=== PATIENT | female | born 1970 | race African-American/Black ===

== ENCOUNTER 2017-04-01 05:13 | Inpatient (IN) | payer OTHER ==
[~2017-04-01] VITALS: Ht 154.9 cm; Wt 72.1 kg
[2017-04-01 05:29] VITALS: BP 121/78
--- NOTE | 2017-04-01 05:49 | Emergency Room Report ---
History of Present Illness General Chief Complaint: Vomiting Source: Patient Present Illness HPI 46-year-old female history of fibroids, status post uterine artery embolization yesterday, presenting with chills and vomiting. Patient states that starting 7: 30 PM last night she has had more than 20 episodes of nonbilious nonbloody vomiting. Patient also complains of generalized abdominal pain. Patient states that she has been spotting vaginal bleeding since the surgery, has soaked 2 pads, small clots. Also complains of chills, no known fevers. Allergies: Coded Allergies: SULFA (SULFONAMIDE ANTIBIOTICS) (Verified Allergy, Unknown, 04/01/17) Patient History Past Medical History: see triage record Past Surgical History: none Pertinent Family History: none Last Menstrual Period: 1 week ago Reviewed Nursing Documentation: PMH: Agreed, PSxH: Agreed Nursing Documentation-PMH Hx Gastrointestinal Problems: Yes - HX OF PEPTIC ULCER Review of Systems All Other Systems: negative except mentioned in HPI Physical Exam Vital Signs Date Time Temp Pulse Resp B/P (MAP) Pulse Ox O2 Delivery O2 Flow Rate FiO2 04/01/17 05:20 98.1 84 18 121/78 100 Room Air Sp02 EP Interpretation: reviewed, normal General Appearance: alert, GCS 15, non-toxic, moderate distress Head: normocephalic, atraumatic Eyes: bilateral eye normal inspection, bilateral eye PERRL, bilateral eye EOMI ENT: normal ENT inspection, normal pharynx, normal voice, moist mucus membranes Neck: normal inspection, full range of motion, supple Respiratory: normal inspection, lungs clear, normal breath sounds, no respiratory distress, no retraction, no wheezing, speaking full sentences, chest symmetrical Cardiovascular #1: normal inspection, regular rate, rhythm, no edema, normal capillary refill Cardiovascular #2: 2+ radial (R), 2+ radial (L) Gastrointestinal: non-distended, no guarding, other - Generalized diffuse abdominal tenderness, no guarding or rebound Musculoskeletal: normal inspection, back normal, normal range of motion, non- tender Neurologic: normal inspection, alert, oriented x3, responsive, motor strength/ tone normal, sensory intact, normal gait, speech normal Psychiatric: normal inspection, judgement/insight normal, memory normal Skin: normal inspection, normal color, no rash, warm/dry, well hydrated, normal turgor Medical Decision Making ER Course 46-year-old female with abdominal pain and vomiting, recent uterine artery embolization yesterday DDX: Postop complication, intra-abdominal abscess, intra-abdominal bleeding, endometritis, UTI, pyelo-, ACS Plan: Obtain labs, ua, lactic acid, blood cultures, CT abdo pelvis with IV contrast Zofran, IV fluids, antibiotics Pain control Patient signed out to Dr. Shelton 46-year-old female with recent uterine artery embolization Now with abdominal pain and vomiting Pending labs Pending CAT scan Please touch base with [employer] Dr. Rowley after CT results Please note that this Emergency Department Report was dictated using [employer] phys technology software, occasionally this can lead to erroneous entry secondary to interpretation by the dictation equipment. EKG Diagnostic Results Rate: normal ST Segments: other - twi V3, t wave flattening V2 ASA given to the pt in ED: No Rhythm Strip Diag. Results EP Interpretation: yes Rate: 95 Rhythm: NSR, no PVC's, no ectopy Last Vital Signs Date Time Temp Pulse Resp B/P (MAP) Pulse Ox O2 Delivery O2 Flow Rate FiO2 04/01/17 05:20 98.1 84 18 121/78 100 Room Air Connie Bustillo M.D. Apr 01, 2017 05:49
[2017-04-01] MEDS ORDERED: Morphine Sulfate 4mg/ml Inj IVP ONE (06:00)
[2017-04-01 06:04] LABS: BASOPHILS % (AUTO) 0.8 % (0.0-2.0); LYMPHOCYTES % (AUTO) 9.8 % (20.0-45.0); MEAN CORPUSCULAR HEMOGLOBIN 24.7 PG (27.0-31.0); MEAN CORPUSCULAR HGB CONC 31.1 G/DL (32.0-36.0); MEAN CORPUSCULAR VOLUME 79 FL (80-99); MEAN PLATELET VOLUME 5.6 FL (6.5-10.1); NEUTROPHILS % (AUTO) 79.5 % (45.0-75.0); PLATELET COUNT 482 K/UL (150-450); RED CELL DISTRIBUTION WIDTH 14.4 % (11.6-14.8); WHITE BLOOD COUNT 11.2 K/UL (4.8-10.8)
[2017-04-01 06:17] LABS: ALANINE AMINOTRANSFERASE 9 U/L (3-33); ALBUMIN/GLOBULIN RATIO 1.2 (1.0-2.7); ANION GAP 16 (5-15); ASPARTATE AMINO TRANSFERASE 14 U/L (5-40); CALCIUM 9.9 mg/dL (8.6-10.2); CARBON DIOXIDE 29 mEQ/L (20-30); CHLORIDE 96 mEQ/L (98-107); CREATININE 0.6 mg/dL (0.5-0.9); GLOMERULAR FILTRATION RATE > 60 mL/min (>60); HEMOLYSIS 1; LIPASE 19 U/L (< 60); POTASSIUM 3.7 mEQ/L (3.4-4.9); SODIUM 141 mEQ/L (135-145); TOTAL PROTEIN 8.2 g/dL (6.6-8.7)
[2017-04-01] MEDS ORDERED: cefTRIAXone 1 GM in NS 55 ML IVPB ONE (06:30)
[2017-04-01] MEDS ORDERED: HYDROmorphone 1mg/ml Carpuject IVP ONE ×2 (06:45→09:15)
[2017-04-01 06:57] LABS: APPEARANCE,URINE CLEAR; KETONES,URINE 3+ (NEGATIVE); LEUKOCYTE ESTERASE ,URINE NEGATIVE (NEGATIVE); NITRITE,URINE NEGATIVE (NEGATIVE); PH,URINE 8 (4.5-8.0); PROTEIN,URINE NEGATIVE (NEGATIVE); UROBILINOGEN,URINE NORMAL MG/DL (0.0-1.0)
[2017-04-01 07:08] LABS: BACTERIA,URINE FEW /HPF; SQUAMOUS EPITHELIAL CELL,UR FEW /LPF (NONE/OCC); WBC,URINE 0-2 /HPF (0 - 2)
[2017-04-01] MEDS ORDERED: OMEPRAZOLE20 M3 ORAL (07:10)
[2017-04-01] MEDS ORDERED: NORCO 10-325 T1 EACH ORAL (07:11)
[2017-04-01 07:33] VITALS: BP 118/74
--- NOTE | 2017-04-01 09:10 | Diagnostic Imaging Report ---
Indication: Right lower quadrant pain Technique: CT of the abdomen and pelvis utilizing automated exposure control with intravenous contrast. Venous scanning performed. CT dose: Total DLP 659 mGycm; CTDI vol 14.4 mGy Comparison: None Findings: There is minimal atelectasis in the lung bases. There is a 10 mm hypodensity within the left lobe of the liver probably a cyst. The adrenal glands, spleen and pancreas are unremarkable. There is high density within the gallbladder. Small bilateral renal hypodensities are seen measuring up to 6 mm too small to accurately characterize probably cysts. The small bowel loops are normal in caliber. There is no definitive evidence of appendicitis. There is a small area of ill-defined fluid density measuring approximately 3.5 x 1.5 cm abutting the right external iliac vessels. There is a large multilobulated central pelvic mass measuring approximately 12.5 x 9 x 11.5 cm with hyper and hypodense individual masses measuring up to 4.6 cm. There is a small fat-containing umbilical hernia. High density is noted in the gallbladder. The osseous structures demonstrate no acute abnormality. Impression: Approximately 3.5 x 1.5 cm area of ill-defined probable hemorrhage surrounding the right external iliac vessels. No obvious active extravasation. Clinical correlation recommended. Multi-lobulated central pelvic mass/masses with the conglomerate measuring 12.5 x 9 x 11.5 cm comprised of smaller hyper and hypodense individual masses measuring up to 4.6 cm probably arising from the uterus and suggestive of uterine masses such as fibroids. Further evaluation recommended as indicated. Increased density within the gallbladder could represent vicarious excretion of contrast from a recent procedure. Sludge or small stones are difficult to exclude. Small left hepatic cyst. Small hypodensities within the kidneys probably representing cysts. Other findings as above. The CT scanner at [facility] is accredited by the [employer] and the scans are performed using protocols designed to limit radiation exposure to as low as reasonably achievable to attain images of sufficient resolution adequate for diagnostic evaluation.
[2017-04-01 09:34] VITALS: BP 121/69
[2017-04-01] MEDS ORDERED: Hydromorphone 0.5mg/0.5ml inj IVP PRN (10:45)
[2017-04-01] MEDS ORDERED: Norco 5mg/325mg tab ORAL PRN (10:45)
[2017-04-01] MEDS ORDERED: DiphenhydrAMINE 50mg/ml Inj IVP PRN (10:45)
--- NOTE | 2017-04-01 10:50 | General Surgery Progress Note ---
General Surgery-Progress Note Subjective Day of Surgery: march 31 Procedure Performed ovarian artery embolization Symptoms: pain same Objective Last 24 Hour Vital Signs Date Time Temp Pulse Resp B/P (MAP) Pulse Ox O2 Delivery O2 Flow Rate FiO2 04/01/17 09:34 98.4 75 19 121/69 96 Room Air 04/01/17 08:24 98.0 71 18 118/74 95 Room Air 04/01/17 07:33 98.0 71 18 118/74 95 Room Air 04/01/17 05:29 98.1 84 18 121/78 100 Room Air 04/01/17 05:20 98.1 84 18 121/78 100 Room Air I&O Intake and Output 04/01/17 04/02/17 19:00 07:00 Intake Total 0 ml Balance 0 ml Intake Oral 0 ml # Voids 3 Dressing: dry Wound: clean Drains: none Cardiovascular: RSR Respiratory: clear Abdomen: soft, flat, tenderness, absent bowel sounds Extremities: no edema, no tenderness, no cyanosis, pulses Laboratory Tests Test 04/01/17 05:55 04/01/17 05:58 Urine Color Pale yellow Urine Appearance Clear Urine pH 8 (4.5-8.0) Urine Specific [place] 1.010 (1.005-1.035) Urine Protein Negative (NEGATIVE) Urine Glucose (UA) Negative (NEGATIVE) Urine Ketones 3+ (NEGATIVE) H Urine Occult Blood 3+ (NEGATIVE) H Urine Nitrite Negative (NEGATIVE) Urine Bilirubin Negative (NEGATIVE) Urine Urobilinogen Normal MG/DL (0.0-1.0) Urine Leukocyte Esterase Negative (NEGATIVE) Urine RBC 2-4 /HPF (0 - 2) H Urine WBC 0-2 /HPF (0 - 2) Urine Squamous Epithelial Cells Few /LPF (NONE/OCC) Urine Bacteria Few /HPF (NONE) Urine HCG, Qualitative Negative Lactic Acid Level 1.20 mmol/L (0.66-2.22) White Blood Count 11.2 K/UL (4.8-10.8) H Red Blood Count 4.20 M/UL (4.20-5.40) Hemoglobin 10.4 G/DL (12.0-16.0) L Hematocrit 33.3 % (37.0-47.0) L Mean Corpuscular Volume 79 FL (80-99) L Mean Corpuscular Hemoglobin 24.7 PG (27.0-31.0) L Mean Corpuscular Hemoglobin Concent 31.1 G/DL (32.0-36.0) L Red Cell Distribution Width 14.4 % (11.6-14.8) Platelet Count 482 K/UL (150-450) H Mean Platelet Volume 5.6 FL (6.5-10.1) L Neutrophils (%) (Auto) 79.5 % (45.0-75.0) H Lymphocytes (%) (Auto) 9.8 % (20.0-45.0) L Monocytes (%) (Auto) 10.0 % (1.0-10.0) Eosinophils (%) (Auto) 0.0 % (0.0-3.0) Basophils (%) (Auto) 0.8 % (0.0-2.0) Sodium Level 141 mEQ/L (135-145) Potassium Level 3.7 mEQ/L (3.4-4.9) Chloride Level 96 mEQ/L (98-107) L Carbon Dioxide Level 29 mEQ/L (20-30) Anion Gap 16 (5-15) H Blood Urea Nitrogen 7 mg/dL (7-23) Creatinine 0.6 mg/dL (0.5-0.9) Estimat Glomerular Filtration Rate > 60 mL/min (>60) Glucose Level 103 mg/dL (74-106) Calcium Level 9.9 mg/dL (8.6-10.2) Total Bilirubin 0.4 mg/dL (0.0-1.2) Aspartate Amino Transf (AST/SGOT) 14 U/L (5-40) Alanine Aminotransferase (ALT/SGPT) 9 U/L (3-33) Alkaline Phosphatase 71 U/L (35-104) Troponin I 0.000 ng/mL (0.000-0.056) Total Protein 8.2 g/dL (6.6-8.7) Albumin 4.5 g/dL (3.5-5.2) Globulin 3.7 g/dL Albumin/Globulin Ratio 1.2 (1.0-2.7) Lipase 19 U/L (< 60) Imaging CT scan, abdomen and pelvis, no acute findings, normal bowel, no abscess, no pseudo-aneurysm. Assessment Post-op Diagnosis post op pain, nausea, uncontrolled Plan Additional Comments GI consult, pain management. clear liquids only. Tray Mariscal MD Apr 01, 2017 10:50
[2017-04-01] MEDS: HYDROmorphone 1mg/ml Carpuject IVP PRN ×2 (11:10→18:30)
[2017-04-01] MEDS: D5 1/2NS w/KCl 20mEq 1,000 ML IV SCH ×2 (14:08→20:13)
[2017-04-01] MEDS: ceFAZolin sod 1 GM in D5W 55 ML IV SCH ×2 (14:08→21:04)
[2017-04-01] MEDS: Norco 10mg/325mg tab ORAL PRN (14:46)
[2017-04-01 16:00] VITALS: BP 91/62
[2017-04-01] MEDS: Docusate 100mg cap ORAL SCH (17:32)
[2017-04-01 20:07] VITALS: BP 106/67
[2017-04-01] MEDS: Zolpidem 5mg tab ORAL PRN (20:57)
[2017-04-02] MEDS: HYDROmorphone 1mg/ml Carpuject IVP PRN (00:28)
[2017-04-02 00:43] VITALS: BP 110/62
[2017-04-02] MEDS: D5 1/2NS w/KCl 20mEq 1,000 ML IV SCH ×3 (03:36→20:24)
[2017-04-02 04:24] VITALS: BP 100/63
[2017-04-02 07:58] LABS: BASOPHILS % (AUTO) 0.7 % (0.0-2.0); EOSINOPHILS % (AUTO) 0.2 % (0.0-3.0); LYMPHOCYTES % (AUTO) 18.4 % (20.0-45.0); MEAN CORPUSCULAR HEMOGLOBIN 25.7 PG (27.0-31.0); MEAN CORPUSCULAR HGB CONC 31.8 G/DL (32.0-36.0); MEAN CORPUSCULAR VOLUME 81 FL (80-99); MEAN PLATELET VOLUME 5.6 FL (6.5-10.1); MONOCYTES % (AUTO) 9.6 % (1.0-10.0); NEUTROPHILS % (AUTO) 71.1 % (45.0-75.0); PLATELET COUNT 367 K/UL (150-450); RED BLOOD COUNT 3.35 M/UL (4.20-5.40); RED CELL DISTRIBUTION WIDTH 15.6 % (11.6-14.8); WHITE BLOOD COUNT 9.4 K/UL (4.8-10.8)
[2017-04-02 08:00] VITALS: BP 101/67
[2017-04-02 08:06] LABS: ANION GAP 13 (5-15); CALCIUM 8.6 mg/dL (8.6-10.2); CARBON DIOXIDE 29 mEQ/L (20-30); CHLORIDE 100 mEQ/L (98-107); CREATININE 0.6 mg/dL (0.5-0.9); GLOMERULAR FILTRATION RATE > 60 mL/min (>60); HEMOLYSIS 0; POTASSIUM 3.6 mEQ/L (3.4-4.9); SODIUM 142 mEQ/L (135-145)
[2017-04-02 08:25] LABS: HEMOLYSIS 0; IRON 30 ug/dL (37-145); TOTAL IRON BINDING CAPACITY 279 ug/dL (250-400)
[2017-04-02] MEDS: Lactulose 20gm/30ml UDC ORAL SCH ×3 (08:46→16:58)
[2017-04-02] MEDS: Docusate 100mg cap ORAL SCH ×2 (09:00→16:58)
[2017-04-02] MEDS: Miralax 17gm pkt ORAL SCH ×2 (09:51→16:58)
--- NOTE | 2017-04-02 11:48 | General Surgery Progress Note ---
General Surgery-Progress Note Subjective Procedure Performed ovarian artery embolization Symptoms: pain same, voiding well Objective Last 24 Hour Vital Signs Date Time Temp Pulse Resp B/P (MAP) Pulse Ox O2 Delivery O2 Flow Rate FiO2 04/02/17 10:22 98.8 04/02/17 08:00 98.8 84 18 101/67 99 Room Air 04/02/17 04:24 98.6 86 18 100/63 96 Room Air 04/02/17 00:43 98.1 69 20 110/62 97 Room Air 04/01/17 20:07 98.2 75 19 106/67 98 Room Air 04/01/17 19:00 97.6 04/01/17 16:00 97.6 80 18 91/62 98 Room Air 04/01/17 15:45 98.4 I&O Intake and Output 04/02/17 04/03/17 19:00 07:00 Intake Total 615 ml Balance 615 ml Intake Oral 240 ml IV Total 375 ml Dressing: dry Wound: clean Drains: none Cardiovascular: RSR Abdomen: soft, tenderness, present bowel sounds, other - hypoactive bowel sounds, no distension Laboratory Tests Test 04/02/17 05:20 White Blood Count 9.4 K/UL (4.8-10.8) Red Blood Count 3.35 M/UL (4.20-5.40) L Hemoglobin 8.6 G/DL (12.0-16.0) L Hematocrit 27.0 % (37.0-47.0) L Mean Corpuscular Volume 81 FL (80-99) Mean Corpuscular Hemoglobin 25.7 PG (27.0-31.0) L Mean Corpuscular Hemoglobin Concent 31.8 G/DL (32.0-36.0) L Red Cell Distribution Width 15.6 % (11.6-14.8) H Platelet Count 367 K/UL (150-450) Mean Platelet Volume 5.6 FL (6.5-10.1) L Neutrophils (%) (Auto) 71.1 % (45.0-75.0) Lymphocytes (%) (Auto) 18.4 % (20.0-45.0) L Monocytes (%) (Auto) 9.6 % (1.0-10.0) Eosinophils (%) (Auto) 0.2 % (0.0-3.0) Basophils (%) (Auto) 0.7 % (0.0-2.0) Sodium Level 142 mEQ/L (135-145) Potassium Level 3.6 mEQ/L (3.4-4.9) Chloride Level 100 mEQ/L (98-107) Carbon Dioxide Level 29 mEQ/L (20-30) Anion Gap 13 (5-15) Blood Urea Nitrogen 3 mg/dL (7-23) L Creatinine 0.6 mg/dL (0.5-0.9) Estimat Glomerular Filtration Rate > 60 mL/min (>60) Glucose Level 115 mg/dL (74-106) H Calcium Level 8.6 mg/dL (8.6-10.2) Iron Level 30 ug/dL (37-145) L Total Iron Binding Capacity 279 ug/dL (250-400) Percent Iron Saturation 11 % (15-50) L Unsaturated Iron Binding 249 ug/dL (112-346) Assessment Post-op Diagnosis post op pain, nausea, uncontrolled Plan Additional Comments GI reconsult, no BM yesterday. hysterectomy discussed if no improvement. Tray Mariscal MD Apr 02, 2017 11:48
[2017-04-02 12:00] VITALS: BP 103/69
--- NOTE | 2017-04-02 13:52 | General Progress Note ---
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 Limited/Unobtainable: Yes Allergies: Coded Allergies: SULFA (SULFONAMIDE ANTIBIOTICS) (Verified Allergy, Unknown, 04/01/17) Subjective abd pain small BM Objective Last 24 Hour Vital Signs Date Time Temp Pulse Resp B/P (MAP) Pulse Ox O2 Delivery O2 Flow Rate FiO2 04/02/17 10:22 98.8 04/02/17 08:00 98.8 84 18 101/67 99 Room Air 04/02/17 04:24 98.6 86 18 100/63 96 Room Air 04/02/17 00:43 98.1 69 20 110/62 97 Room Air 04/01/17 20:07 98.2 75 19 106/67 98 Room Air 04/01/17 19:00 97.6 04/01/17 16:00 97.6 80 18 91/62 98 Room Air 04/01/17 15:45 98.4 Intake and Output 04/02/17 04/03/17 19:00 07:00 Intake Total 740 ml Balance 740 ml Intake Oral 240 ml IV Total 500 ml Laboratory Tests 04/02/17 05:20: White Blood Count 9.4, Red Blood Count 3.35L, Hemoglobin 8.6L, Hematocrit 27.0L , Mean Corpuscular Volume 81, Mean Corpuscular Hemoglobin 25.7L, Mean Corpuscular Hemoglobin Concent 31.8L, Red Cell Distribution Width 15.6H, Platelet Count 367, Mean Platelet Volume 5.6L, Neutrophils (%) (Auto) 71.1, Lymphocytes (%) (Auto) 18.4L, Monocytes (%) (Auto) 9.6, Eosinophils (%) (Auto) 0.2, Basophils (%) (Auto) 0.7, Sodium Level 142, Potassium Level 3.6, Chloride Level 100, Carbon Dioxide Level 29, Anion Gap 13, Blood Urea Nitrogen 3L, Creatinine 0.6, Estimat Glomerular Filtration Rate > 60, Glucose Level 115H, Calcium Level 8.6, Iron Level 30L, Total Iron Binding Capacity 279, Percent Iron Saturation 11L, Unsaturated Iron Binding 249 Height (Feet): 5 Height (Inches): 1.00 Weight (Pounds): 159 General Appearance: alert EENT: normal ENT inspection Neck: supple Cardiovascular: normal rate Respiratory/Chest: decreased breath sounds Abdomen: soft, tender Extremities: non-tender BAILEE BANDA Apr 02, 2017 13:52
[2017-04-02] MEDS ORDERED: Tubing IV Secondary IV ONE (15:43)
[2017-04-02 16:00] VITALS: BP 111/74
[2017-04-02] MEDS: Relistor 12mg/0.6ml Vial SUBQ SCH (16:58)
[2017-04-02 20:00] VITALS: BP 108/65
[2017-04-02] MEDS: Iron Sucrose 100 MG in NS 55 ML IV SCH (20:24)
[2017-04-02] MEDS: Zolpidem 5mg tab ORAL PRN (21:12)
[2017-04-03 04:05] VITALS: BP 103/67
[2017-04-03] MEDS: D5 1/2NS w/KCl 20mEq 1,000 ML IV SCH ×2 (04:52→13:15)
[2017-04-03 08:00] VITALS: BP 119/69
[2017-04-03] MEDS: Miralax 17gm pkt ORAL SCH (09:00)
[2017-04-03] MEDS: Docusate 100mg cap ORAL SCH ×2 (09:29→18:21)
[2017-04-03] MEDS: Lactulose 20gm/30ml UDC ORAL SCH (09:29)
[2017-04-03 10:01] LABS: EOSINOPHILS % (AUTO) 0.1 % (0.0-3.0); LYMPHOCYTES % (AUTO) 7.4 % (20.0-45.0); MEAN CORPUSCULAR HEMOGLOBIN 24.9 PG (27.0-31.0); MEAN CORPUSCULAR HGB CONC 30.9 G/DL (32.0-36.0); MEAN CORPUSCULAR VOLUME 80 FL (80-99); MEAN PLATELET VOLUME 5.3 FL (6.5-10.1); MONOCYTES % (AUTO) 10.7 % (1.0-10.0); NEUTROPHILS % (AUTO) 80.7 % (45.0-75.0); PLATELET COUNT 370 K/UL (150-450); RED BLOOD COUNT 3.62 M/UL (4.20-5.40); RED CELL DISTRIBUTION WIDTH 15.2 % (11.6-14.8); WHITE BLOOD COUNT 16.9 K/UL (4.8-10.8)
[2017-04-03 10:57] LABS: ANION GAP 7 (5-15); CALCIUM 8.3 MG/DL (8.5-10.1); CARBON DIOXIDE 28 MMOL/L (21-32); CHLORIDE 98 MMOL/L (98-107); CREATININE 0.6 MG/DL (0.55-1.30); GLOMERULAR FILTRATION RATE > 60 mL/min (>60); POTASSIUM 3.2 MMOL/L (3.5-5.1); SODIUM 133 MMOL/L (136-145)
--- NOTE | 2017-04-03 11:05 | General Surgery Progress Note ---
General Surgery-Progress Note Subjective Procedure Performed ovarian artery embolization Symptoms: improved, pain same, passing flatus, BM Objective Last 24 Hour Vital Signs Date Time Temp Pulse Resp B/P (MAP) Pulse Ox O2 Delivery O2 Flow Rate FiO2 04/03/17 08:35 97.9 04/03/17 08:00 98.8 97 20 119/69 97 Room Air 04/03/17 04:05 97.9 78 18 103/67 98 Room Air 04/02/17 20:00 99.4 97 18 108/65 97 Room Air 04/02/17 16:00 98.8 89 17 111/74 98 Room Air 04/02/17 12:00 98.0 87 17 103/69 98 Room Air Dressing: dry Wound: clean Drains: none Cardiovascular: RSR Respiratory: clear Abdomen: soft, flat, scaphoid, present bowel sounds Extremities: no edema, no tenderness, no cyanosis Laboratory Tests Test 04/03/17 06:00 04/03/17 09:40 Stool Occult Blood Pending White Blood Count 16.9 K/UL (4.8-10.8) #H Red Blood Count 3.62 M/UL (4.20-5.40) L Hemoglobin 9.0 G/DL (12.0-16.0) L Hematocrit 29.1 % (37.0-47.0) L Mean Corpuscular Volume 80 FL (80-99) Mean Corpuscular Hemoglobin 24.9 PG (27.0-31.0) L Mean Corpuscular Hemoglobin Concent 30.9 G/DL (32.0-36.0) L Red Cell Distribution Width 15.2 % (11.6-14.8) H Platelet Count 370 K/UL (150-450) Mean Platelet Volume 5.3 FL (6.5-10.1) L Neutrophils (%) (Auto) 80.7 % (45.0-75.0) H Lymphocytes (%) (Auto) 7.4 % (20.0-45.0) L Monocytes (%) (Auto) 10.7 % (1.0-10.0) H Eosinophils (%) (Auto) 0.1 % (0.0-3.0) Basophils (%) (Auto) 1.0 % (0.0-2.0) Sodium Level Pending Potassium Level Pending Chloride Level Pending Carbon Dioxide Level Pending Blood Urea Nitrogen Pending Creatinine Pending Estimat Glomerular Filtration Rate Pending Glucose Level Pending Calcium Level Pending Additional Comments had BM yesterday, still some leg pain, pulses intact Assessment Post-op Diagnosis post op pain, nausea, uncontrolled Plan Additional Comments ambulate, heplock IV may shower, offer oral pain meds, doppler leg arteries and veins Tray Mariscal MD Apr 03, 2017 11:05
--- NOTE | 2017-04-03 11:30 | GI Progress Note ---
Assessment/Plan Problems: (1) Diarrhea ICD Codes: R19.7 - Diarrhea, unspecified SNOMED: 66691263 (2) Constipation ICD Codes: K59.00 - Constipation, unspecified SNOMED: 83009703 (3) Pelvic pain ICD Codes: R10.2 - Pelvic and perineal pain SNOMED: 82003396 (4) Uterine fibroid ICD Codes: D25.9 - Leiomyoma of uterus, unspecified SNOMED: 66344717 (5) Vomiting ICD Codes: R11.10 - Vomiting, unspecified SNOMED: 305250433 Status: unchanged Status Narrative Discussed with Dr. Seals. 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 Subjective abdominal pain Objective Last 24 Hour Vital Signs Date Time Temp Pulse Resp B/P (MAP) Pulse Ox O2 Delivery O2 Flow Rate FiO2 04/03/17 08:35 97.9 04/03/17 08:00 98.8 97 20 119/69 97 Room Air 04/03/17 04:05 97.9 78 18 103/67 98 Room Air 04/02/17 20:00 99.4 97 18 108/65 97 Room Air 04/02/17 16:00 98.8 89 17 111/74 98 Room Air 04/02/17 12:00 98.0 87 17 103/69 98 Room Air Intake and Output 04/03/17 04/04/17 19:00 07:00 # Bowel Movements 1 Laboratory Tests Test 04/03/17 06:00 04/03/17 09:40 Stool Occult Blood Negative (NEGATIVE) White Blood Count 16.9 K/UL (4.8-10.8) #H Red Blood Count 3.62 M/UL (4.20-5.40) L Hemoglobin 9.0 G/DL (12.0-16.0) L Hematocrit 29.1 % (37.0-47.0) L Mean Corpuscular Volume 80 FL (80-99) Mean Corpuscular Hemoglobin 24.9 PG (27.0-31.0) L Mean Corpuscular Hemoglobin Concent 30.9 G/DL (32.0-36.0) L Red Cell Distribution Width 15.2 % (11.6-14.8) H Platelet Count 370 K/UL (150-450) Mean Platelet Volume 5.3 FL (6.5-10.1) L Neutrophils (%) (Auto) 80.7 % (45.0-75.0) H Lymphocytes (%) (Auto) 7.4 % (20.0-45.0) L Monocytes (%) (Auto) 10.7 % (1.0-10.0) H Eosinophils (%) (Auto) 0.1 % (0.0-3.0) Basophils (%) (Auto) 1.0 % (0.0-2.0) Sodium Level 133 MMOL/L (136-145) L Potassium Level 3.2 MMOL/L (3.5-5.1) L Chloride Level 98 MMOL/L (98-107) Carbon Dioxide Level 28 MMOL/L (21-32) Anion Gap 7 (5-15) Blood Urea Nitrogen 2 mg/dL (7-18) L Creatinine 0.6 MG/DL (0.55-1.30) Estimat Glomerular Filtration Rate > 60 mL/min (>60) Glucose Level 131 MG/DL (74-106) H Calcium Level 8.3 MG/DL (8.5-10.1) L Height (Feet): 5 Height (Inches): 1.00 Weight (Pounds): 159 General Appearance: no apparent distress, alert Cardiovascular: normal rate Respiratory/Chest: normal breath sounds, no respiratory distress Abdominal Exam: normal bowel sounds, non tender, soft Genitourinary/Rectal: normal rectal exam Extremities: normal range of motion Kayla Garcia N.P. Apr 03, 2017 11:30
[2017-04-03 12:00] VITALS: BP 105/66
[2017-04-03] MEDS: Norco 10mg/325mg tab ORAL PRN ×2 (13:24→23:18)
[2017-04-03] MEDS: D5 1/2NS w/KCl 30mEq 1000ml 1,000 ML IV SCH ×2 (14:24→21:12)
[2017-04-03] MEDS ORDERED: Tubing IV Secondary IV ONE ×2 (14:27→18:53)
[2017-04-03] MEDS ORDERED: Sterile Water Irrig 1000ml IRRIG ONE (14:27)
[2017-04-03] MEDS ORDERED: NS 275ml ONE (14:27)
[2017-04-03 16:00] VITALS: BP 97/59
[2017-04-03 20:42] VITALS: BP 124/70
[2017-04-03] MEDS ORDERED: Miralax 17gm pkt ORAL SCH (21:00)
[2017-04-03] MEDS: Iron Sucrose 100 MG in NS 55 ML IV SCH (21:11)
[2017-04-04 00:52] VITALS: BP 97/55
[2017-04-04 04:00] VITALS: BP 107/66
[2017-04-04] MEDS: D5 1/2NS w/KCl 30mEq 1000ml 1,000 ML IV SCH ×3 (04:27→16:45)
[2017-04-04 08:00] VITALS: BP 100/62
[2017-04-04 08:39] LABS: BASOPHILS % (AUTO) 0.7 % (0.0-2.0); EOSINOPHILS % (AUTO) 0.2 % (0.0-3.0); LYMPHOCYTES % (AUTO) 10.7 % (20.0-45.0); MEAN CORPUSCULAR HEMOGLOBIN 26.2 PG (27.0-31.0); MEAN CORPUSCULAR HGB CONC 32.6 G/DL (32.0-36.0); MEAN CORPUSCULAR VOLUME 80 FL (80-99); MEAN PLATELET VOLUME 5.7 FL (6.5-10.1); MONOCYTES % (AUTO) 11.4 % (1.0-10.0); PLATELET COUNT 356 K/UL (150-450); RED CELL DISTRIBUTION WIDTH 15.1 % (11.6-14.8); WHITE BLOOD COUNT 15.8 K/UL (4.8-10.8)
[2017-04-04] MEDS ORDERED: Relistor 12mg/0.6ml Vial SUBQ SCH ×2 (09:00→17:00)
[2017-04-04] MEDS: Relistor 12mg/0.6ml Vial SUBQ SCH (09:00)
[2017-04-04] MEDS: Docusate 100mg cap ORAL SCH (09:00)
[2017-04-04 09:22] LABS: ANION GAP 6 (5-15); CALCIUM 8.5 MG/DL (8.5-10.1); CARBON DIOXIDE 29 MMOL/L (21-32); CHLORIDE 103 MMOL/L (98-107); CREATININE 0.6 MG/DL (0.55-1.30); GLOMERULAR FILTRATION RATE > 60 mL/min (>60); POTASSIUM 3.6 MMOL/L (3.5-5.1); SODIUM 138 MMOL/L (136-145)
[2017-04-04 12:00] VITALS: BP 97/62
--- NOTE | 2017-04-04 13:47 | Consultation ---
Consult Note Consult Note dict called pain mgmt ua/cs MILLER CAZARES Apr 04, 2017 13:47
[2017-04-04] MEDS ORDERED: Morphine Sulfate 4mg/ml Inj IVP ONE (14:00)
[2017-04-04] MEDS: HYDROmorphone 1mg/ml Carpuject IVP PRN (14:38)
[2017-04-04] MEDS ORDERED: Cyclobenzaprine 10mg Tab ORAL PRN (15:00)
--- NOTE | 2017-04-04 15:00 | Consultation ---
History of Present Illness General Date patient seen: Apr 04, 2017 Chief Complaint: Present Illness Allergies: Coded Allergies: SULFA (SULFONAMIDE ANTIBIOTICS) (Verified Allergy, Unknown, 04/01/17) Medication History Scheduled Omeprazole (Omeprazole), 20 MG ORAL DAILY, (Reported) Scheduled PRN Hydrocodone Bit/Acetaminophen 10-325* ([place] 10-325*), 1 TAB ORAL Q4H PRN for For Pain, (Reported) Patient History Healthcare decision maker Resuscitation status Full Code Advanced Directive on File Physical Exam Last 24 Hour Vital Signs Date Time Temp Pulse Resp B/P (MAP) Pulse Ox O2 Delivery O2 Flow Rate FiO2 04/04/17 12:00 98.6 93 19 97/62 96 Room Air 04/04/17 08:00 98.1 92 19 100/62 99 Room Air 04/04/17 04:00 97.8 89 19 107/66 99 Room Air 04/04/17 00:52 98.4 101 19 97/55 99 Room Air 04/03/17 20:42 98.1 80 18 124/70 97 Room Air 04/03/17 16:00 99.3 92 19 97/59 98 Room Air Intake and Output 04/04/17 04/05/17 18:59 06:59 Intake Total 875 ml Output Total 1000 ml Balance -125 ml IV Total 875 ml Output Urine Total 1000 ml # Voids 2 # Bowel Movements 2 Laboratory Tests Test 04/04/17 08:00 White Blood Count 15.8 K/UL (4.8-10.8) H Red Blood Count 3.40 M/UL (4.20-5.40) L Hemoglobin 8.9 G/DL (12.0-16.0) L Hematocrit 27.4 % (37.0-47.0) L Mean Corpuscular Volume 80 FL (80-99) Mean Corpuscular Hemoglobin 26.2 PG (27.0-31.0) L Mean Corpuscular Hemoglobin Concent 32.6 G/DL (32.0-36.0) Red Cell Distribution Width 15.1 % (11.6-14.8) H Platelet Count 356 K/UL (150-450) Mean Platelet Volume 5.7 FL (6.5-10.1) L Neutrophils (%) (Auto) 77.0 % (45.0-75.0) H Lymphocytes (%) (Auto) 10.7 % (20.0-45.0) L Monocytes (%) (Auto) 11.4 % (1.0-10.0) H Eosinophils (%) (Auto) 0.2 % (0.0-3.0) Basophils (%) (Auto) 0.7 % (0.0-2.0) Sodium Level 138 MMOL/L (136-145) Potassium Level 3.6 MMOL/L (3.5-5.1) Chloride Level 103 MMOL/L (98-107) Carbon Dioxide Level 29 MMOL/L (21-32) Anion Gap 6 (5-15) Blood Urea Nitrogen 1 mg/dL (7-18) L Creatinine 0.6 MG/DL (0.55-1.30) Estimat Glomerular Filtration Rate > 60 mL/min (>60) Glucose Level 115 MG/DL (74-106) H Calcium Level 8.5 MG/DL (8.5-10.1) Height (Feet): 5 Height (Inches): 1.00 Weight (Pounds): 159 Medications Current Medications Medications (Trade) Dose Ordered Sig/Tomas Route PRN Reason Start Time Stop Time Status Last Admin Dose Admin Acetaminophen/ Hydrocodone Bitart ([place] 10/325) 1 ea Q4H PRN ORAL Severe Pain (Pain Scale 7-10) 04/01/17 10:45 04/08/17 10:44 04/03/17 23:18 Acetaminophen/ Hydrocodone Bitart ([place] 5/325) 1 tab Q4H PRN ORAL Moderate Pain (Pain Scale 4-6) 04/01/17 10:45 04/08/17 10:44 Dextrose/ Electrolytes 1,000 ml @ 125 mls/hr Q8H IV 04/03/17 14:00 05/03/17 13:59 04/04/17 10:40 Diphenhydramine HCl (Benadryl) 12.5 mg Q6H PRN IVP Itching/Pruritis 04/01/17 10:45 05/01/17 10:44 Diphenhydramine HCl (Benadryl) 25 mg Q8H PRN ORAL Itching/Pruritis 04/01/17 10:45 05/01/17 10:44 Docusate Sodium (Colace) 100 mg TWICE A DAY ORAL 04/01/17 18:00 05/01/17 17:59 04/03/17 18:21 Hydromorphone HCl (Dilaudid) 0.5 mg Q3H PRN IVP Pain Score 1-3 04/01/17 10:45 04/08/17 10:44 Hydromorphone HCl (Dilaudid) 1 mg Q3H PRN IVP pain score 4-6 04/01/17 10:45 04/08/17 10:44 04/04/17 14:38 Hydromorphone HCl (Dilaudid) 2 mg Q3H PRN IVP pain score 7-10 04/01/17 10:45 04/08/17 10:44 04/04/17 13:38 Iron Sucrose 100 mg/Sodium Chloride 60 ml @ 240 mls/hr BEDTIME IV 04/02/17 21:00 04/06/17 21:14 04/03/17 21:11 Methylnaltrexone [place] (Relistor) 12 mg QOD SUBQ 04/02/17 17:00 05/02/17 16:59 04/02/17 16:58 Ondansetron HCl (Zofran) 4 mg Q6H PRN IVP Nausea & Vomiting 04/01/17 10:45 05/01/17 10:44 04/02/17 18:49 Polyethylene Glycol (Miralax) 17 gm QHS ORAL 04/03/17 21:00 05/02/17 08:59 Zolpidem Tartrate (Ambien) 5 mg DAILYPRN PRN ORAL Insomnia 04/01/17 10:45 04/08/17 10:44 04/02/17 21:12 Assessment/Plan Status Narrative (1) Abdominal pain (2) Pelvic pain (3) Fibroid Uterus (4) S/p Ovarian artery embolization seen JOHN Diaz Apr 04, 2017 15:00
--- NOTE | 2017-04-04 15:21 | GI Progress Note ---
Assessment/Plan Problems: (1) Diarrhea ICD Codes: R19.7 - Diarrhea, unspecified SNOMED: 64766164 (2) Constipation ICD Codes: K59.00 - Constipation, unspecified SNOMED: 21811933 (3) Pelvic pain ICD Codes: R10.2 - Pelvic and perineal pain SNOMED: 20241092 (4) Uterine fibroid ICD Codes: D25.9 - Leiomyoma of uterus, unspecified SNOMED: 49283335 (5) Vomiting ICD Codes: R11.10 - Vomiting, unspecified SNOMED: 995797733 Status: unchanged Status Narrative Discussed with Dr. Seals. 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 abdominal pain Objective Last 24 Hour Vital Signs Date Time Temp Pulse Resp B/P (MAP) Pulse Ox O2 Delivery O2 Flow Rate FiO2 04/04/17 12:00 98.6 93 19 97/62 96 Room Air 04/04/17 08:00 98.1 92 19 100/62 99 Room Air 04/04/17 04:00 97.8 89 19 107/66 99 Room Air 04/04/17 00:52 98.4 101 19 97/55 99 Room Air 04/03/17 20:42 98.1 80 18 124/70 97 Room Air 04/03/17 16:00 99.3 92 19 97/59 98 Room Air Intake and Output 04/04/17 04/05/17 19:00 07:00 Intake Total 750 ml Output Total 1000 ml Balance -250 ml IV Total 750 ml Output Urine Total 1000 ml # Voids 2 # Bowel Movements 2 Laboratory Tests Test 04/04/17 08:00 White Blood Count 15.8 K/UL (4.8-10.8) H Red Blood Count 3.40 M/UL (4.20-5.40) L Hemoglobin 8.9 G/DL (12.0-16.0) L Hematocrit 27.4 % (37.0-47.0) L Mean Corpuscular Volume 80 FL (80-99) Mean Corpuscular Hemoglobin 26.2 PG (27.0-31.0) L Mean Corpuscular Hemoglobin Concent 32.6 G/DL (32.0-36.0) Red Cell Distribution Width 15.1 % (11.6-14.8) H Platelet Count 356 K/UL (150-450) Mean Platelet Volume 5.7 FL (6.5-10.1) L Neutrophils (%) (Auto) 77.0 % (45.0-75.0) H Lymphocytes (%) (Auto) 10.7 % (20.0-45.0) L Monocytes (%) (Auto) 11.4 % (1.0-10.0) H Eosinophils (%) (Auto) 0.2 % (0.0-3.0) Basophils (%) (Auto) 0.7 % (0.0-2.0) Sodium Level 138 MMOL/L (136-145) Potassium Level 3.6 MMOL/L (3.5-5.1) Chloride Level 103 MMOL/L (98-107) Carbon Dioxide Level 29 MMOL/L (21-32) Anion Gap 6 (5-15) Blood Urea Nitrogen 1 mg/dL (7-18) L Creatinine 0.6 MG/DL (0.55-1.30) Estimat Glomerular Filtration Rate > 60 mL/min (>60) Glucose Level 115 MG/DL (74-106) H Calcium Level 8.5 MG/DL (8.5-10.1) Height (Feet): 5 Height (Inches): 1.00 Weight (Pounds): 159 General Appearance: no apparent distress, alert Cardiovascular: normal rate Respiratory/Chest: normal breath sounds Abdominal Exam: soft, tender, other Kayla Garcia N.P. Apr 04, 2017 15:21
[2017-04-04 15:41] LABS: APPEARANCE,URINE CLEAR; KETONES,URINE NEGATIVE (NEGATIVE); LEUKOCYTE ESTERASE ,URINE NEGATIVE (NEGATIVE); NITRITE,URINE NEGATIVE (NEGATIVE); PH,URINE 8 (4.5-8.0); PROTEIN,URINE NEGATIVE (NEGATIVE); UROBILINOGEN,URINE NORMAL MG/DL (0.0-1.0)
[2017-04-04] MEDS ORDERED: Anusol HC Supp RECTAL PRN (15:45)
[2017-04-04 15:49] LABS: BACTERIA,URINE OCCASIONAL /HPF; SQUAMOUS EPITHELIAL CELL,UR OCCASIONAL /LPF (NONE/OCC); WBC,URINE 0-2 /HPF (0 - 2)
[2017-04-04 16:00] VITALS: BP 98/60
[2017-04-04 20:00] VITALS: BP 111/77
--- NOTE | 2017-04-04 20:30 | Consultation ---
DATE OF CONSULTATION: 04/04/2017 INTERNAL MEDICINE CONSULTATION. CONSULTING PHYSICIAN: Shen Loja M.D. HISTORY OF PRESENT ILLNESS: The patient is a pleasant 46-year-old woman, who was admitted with vomiting several days ago following uterine artery embolization. She had a prior similar procedure about a week earlier without this complication. Since admission, her vomiting has improved, but she continues to have a lot of abdominal pain. She has hypokalemia. Dr. Mariscal called me today and asked me to participate in her care. PAST MEDICAL HISTORY: The patient has chronic neck and back pain and has been a long time opiate user taking about six or eight [place] 10/325 mg daily. She has a history of ulcer disease and anemia. MEDICATIONS: Reviewed. ALLERGIES: Sulfa. REVIEW OF SYSTEMS: Otherwise unremarkable. PHYSICAL EXAMINATION: GENERAL: She is overweight. VITAL SIGNS: The patient's vital signs are stable. Blood pressure is 97/62 most recently. There is no fever. The temperature yeny to 99 degrees during this hospital stay. HEENT: Head is normocephalic. NECK: No jugular venous distention. CHEST: Clear. CARDIAC: Rhythm is regular. ABDOMEN: Soft and diffusely tender. She does not permit us thorough abdominal examination pulling my hand away. EXTREMITIES: Have no edema. DIAGNOSTIC DATA: CT of abdomen and pelvis shows hemorrhage surrounding the right external iliac vessels and multilobulated fibroid masses. There is some biliary sludge and several small liver and kidney cysts. There is minimal atelectasis in [place] [address], hemoglobin is 8.9. Chemistry is unremarkable, but for a mild elevation of the blood sugar. ASSESSMENT: 1. Postprocedural abdominal pain. 2. Status post uterine artery embolization for fibroids. 3. Chronic narcotic use. 4. Chronic neck and back pain. PLAN: The patient will be seen by pain management. She is presently not on antibiotics and we will obtain urine culture given the elevated white count. I will follow her closely in the hospital with you. Shen Loja M.D. DR: John JOB#: [id number] CC: Tray Mariscal M.D.; Fax#: [phone] SHEN LOJA M.D. ; FAX#: [phone]
[2017-04-04] MEDS: Iron Sucrose 100 MG in NS 55 ML IV SCH (21:19)
[2017-04-05] MEDS: D5 1/2NS w/KCl 30mEq 1000ml 1,000 ML IV SCH ×4 (00:36→22:22)
[2017-04-05 00:58] VITALS: BP 107/69
[2017-04-05 04:38] VITALS: BP 95/57
--- NOTE | 2017-04-05 06:46 | Consultation ---
DATE OF CONSULTATION: 04/04/2017 PAIN MANAGEMENT CONSULTATION CONSULTING PHYSICIAN: Whitney Dasilva M.D. REFERRING PHYSICIAN: Shen Loja M.D. ATTENDING PHYSICIAN: Tray Mariscal MD PHYSICIAN OPERATIONS RESEARCH ANALYST: Oseas Acevedo CHIEF COMPLAINT: Abdominal and pelvic pain. HISTORY OF PRESENT ILLNESS: This is a 46-year-old female, who is being seen on the Med/Surg floor of [facility] for initial comprehensive pain management consultation. The patient reports that she has been having pain in abdominal area since 2008. It is a constant acute pain, rated at 10/10, describing as a burning, sharp chronic pain, increased with movement, and reduced with heat. The patient explained that she had ovarian artery embolization with Dr. Mariscal on Monday at [facility], started to have nausea and vomiting, and admitted under the care of Dr. Mariscal, started on Dilaudid with no pain relief and in constant pain at this time. We were consulted so that the patient would have adequate pain control while here in the hospital. 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 PAST SURGICAL HISTORY: Right carpal tunnel release. MEDICATIONS: Omeprazole and [place]. ALLERGIES: Sulfa. SOCIAL HISTORY: Denies smoking tobacco, drinking alcohol, or drug abuse. REVIEW OF SYSTEMS: Denies rash, fever, chills, sweating, dizziness, drowsiness, sore throat, or change in her weight. No shortness of breath, chest pain, or palpitations. No nausea, vomiting, diarrhea, or blood in the stool or urine. No bowel or bladder incontinence. No dysuria. Complains of abdominal pain. PHYSICAL EXAMINATION: GENERAL: Alert, awake, oriented x3. VITAL SIGNS: Blood pressure 97/62, heart rate is 92, oxygen saturation 96%, respirations 19, and temperature 98.6 degrees Fahrenheit. HEENT: PERRLA. NECK: Range of motion is full in all directions. No tenderness to paracervical muscles. No adenopathy. LUNGS: Clear. ABDOMEN: Tenderness to palpation. BACK: Range of motion is decreased in flexion and extension with tenderness to paraspinal muscles. No tenderness to trapezius or rhomboid muscles. EXTREMITIES: Upper extremity range of motion is full in all directions. Motor is intact. No cyanosis. No clubbing. No edema. Sensory is intact. Reflexes are not obtainable. No adenopathy. Lower extremity range of motion is reduced due to the patient's clinical condition. Motor is intact. No cyanosis. No clubbing. No cyanosis. Sensory is intact. Reflexes are unobtainable. No adenopathy. ASSESSMENT AND PLAN: This is a 46-year-old female with abdominal pain, pelvic pain, fibroid uterus, status post ovarian artery embolization. The patient will be started on Neurontin 300 mg tablet 3 times a day, Flexeril 10 mg tablet every 8 hours as needed for muscle spasm, Percocet 10 mg tablet every 4 hours as needed for moderate pain, Relistor subcutaneous injections every other day. We will discontinue [place] 5 and 10 mg tablets. We will discontinue Dilaudid 0.5-1 mg IV and continue Dilaudid 2 mg IV every 4 hours as needed for severe pain. The patient was discussed with Dr. Dasilva and Dr. Dasilva concurred. We will follow the patient. Thank you very much for the courtesy of this consultation. Whitney Dasilva M.D. LUKAS Acevedo DR: CAM JOB#: [id number] CC: ZACKERY
[2017-04-05 07:10] LABS: BASOPHILS % (AUTO) 0.8 % (0.0-2.0); EOSINOPHILS % (AUTO) 0.5 % (0.0-3.0); LYMPHOCYTES % (AUTO) 13.1 % (20.0-45.0); MEAN CORPUSCULAR HGB CONC 33.4 G/DL (32.0-36.0); MEAN CORPUSCULAR VOLUME 81 FL (80-99); MEAN PLATELET VOLUME 5.6 FL (6.5-10.1); MONOCYTES % (AUTO) 12.4 % (1.0-10.0); NEUTROPHILS % (AUTO) 73.3 % (45.0-75.0); PLATELET COUNT 350 K/UL (150-450); RED BLOOD COUNT 3.28 M/UL (4.20-5.40); RED CELL DISTRIBUTION WIDTH 15.8 % (11.6-14.8); WHITE BLOOD COUNT 13.8 K/UL (4.8-10.8)
[2017-04-05 07:40] LABS: ANION GAP 4 (5-15); CALCIUM 8.5 MG/DL (8.5-10.1); CARBON DIOXIDE 29 MMOL/L (21-32); CHLORIDE 98 MMOL/L (98-107); CREATININE 0.6 MG/DL (0.55-1.30); GLOMERULAR FILTRATION RATE > 60 mL/min (>60); POTASSIUM 3.9 MMOL/L (3.5-5.1); SODIUM 131 MMOL/L (136-145)
[2017-04-05 08:00] VITALS: BP 103/65
[2017-04-05 12:00] VITALS: BP 97/67
--- NOTE | 2017-04-05 13:07 | General Progress Note ---
Assessment/Plan Assessment/Plan 1. Postprocedural abdominal pain. 2. Status post uterine artery embolization for fibroids. 3. Chronic narcotic use. 4. Chronic neck and back pain. getting IV narcotics need to change to oral agrees to consider hysterectomy or myomectomy to schedule in future per Dr Mariscal Subjective Gastrointestinal/Abdominal: Reports: abdominal pain Allergies: Coded Allergies: SULFA (SULFONAMIDE ANTIBIOTICS) (Verified Allergy, Unknown, 04/01/17) Objective Last 24 Hour Vital Signs Date Time Temp Pulse Resp B/P (MAP) Pulse Ox O2 Delivery O2 Flow Rate FiO2 04/05/17 12:00 98.6 105 20 97/67 98 Room Air 04/05/17 11:01 97.9 04/05/17 10:28 97.9 04/05/17 08:00 98.4 115 20 103/65 97 Room Air 04/05/17 04:38 97.9 102 19 95/57 95 Room Air 04/05/17 00:58 98.4 98 19 107/69 97 Room Air 04/04/17 20:00 98.4 100 18 111/77 98 Room Air 04/04/17 16:00 99.7 99 19 98/60 96 Room Air Intake and Output 04/05/17 04/06/17 19:00 07:00 Intake Total 760 ml Output Total 1000 ml Balance -240 ml Intake Oral 260 ml IV Total 500 ml Output Urine Total 1000 ml Laboratory Tests 04/04/17 14:27: Urine Color Pale yellow, Urine Appearance Clear, Urine pH 8, Urine Specific [place] 1.010, Urine Protein Negative, Urine Glucose (UA) Negative, Urine Ketones Negative, Urine Occult Blood 2+H, Urine Nitrite Negative, Urine Bilirubin Negative, Urine Urobilinogen Normal, Urine Leukocyte Esterase Negative , Urine RBC 2-4H, Urine WBC 0-2, Urine Squamous Epithelial Cells Occasional, Urine Bacteria Occasional 04/05/17 04:40: White Blood Count 13.8H, Red Blood Count 3.28L, Hemoglobin 8.8L, Hematocrit 26.5L, Mean Corpuscular Volume 81, Mean Corpuscular Hemoglobin 27.0, Mean Corpuscular Hemoglobin Concent 33.4, Red Cell Distribution Width 15.8H, Platelet Count 350, Mean Platelet Volume 5.6L, Neutrophils (%) (Auto) 73.3, Lymphocytes (%) (Auto) 13.1L, Monocytes (%) (Auto) 12.4H, Eosinophils (%) (Auto ) 0.5, Basophils (%) (Auto) 0.8, Sodium Level 131L, Potassium Level 3.9, Chloride Level 98, Carbon Dioxide Level 29, Anion Gap 4L, Blood Urea Nitrogen 2L , Creatinine 0.6, Estimat Glomerular Filtration Rate > 60, Glucose Level 111H, Calcium Level 8.5 Height (Feet): 5 Height (Inches): 1.00 Weight (Pounds): 159 General Appearance: no apparent distress, alert Cardiovascular: normal rate Respiratory/Chest: lungs clear MILLER CAZARES Apr 05, 2017 13:07
--- NOTE | 2017-04-05 14:15 | General Surgery Progress Note ---
General Surgery-Progress Note Subjective Procedure Performed ovarian artery embolization Chief Complaint: pelvic pain Symptoms: improved - pain management consult two days ago, tolerating diet, BM - now with constipation, GI consulted again Objective Last 24 Hour Vital Signs Date Time Temp Pulse Resp B/P (MAP) Pulse Ox O2 Delivery O2 Flow Rate FiO2 04/05/17 12:00 98.6 105 20 97/67 98 Room Air 04/05/17 11:01 97.9 04/05/17 10:28 97.9 04/05/17 08:00 98.4 115 20 103/65 97 Room Air 04/05/17 04:38 97.9 102 19 95/57 95 Room Air 04/05/17 00:58 98.4 98 19 107/69 97 Room Air 04/04/17 20:00 98.4 100 18 111/77 98 Room Air 04/04/17 16:00 99.7 99 19 98/60 96 Room Air I&O Intake and Output 04/05/17 04/06/17 19:00 07:00 Intake Total 885 ml Output Total 1000 ml Balance -115 ml Intake Oral 260 ml IV Total 625 ml Output Urine Total 1000 ml Dressing: dry Wound: clean Drains: none Cardiovascular: RSR Respiratory: clear Abdomen: soft, flat, tenderness - pelvic ultrasound today, present bowel sounds Laboratory Tests Test 04/04/17 14:27 04/05/17 04:40 Urine Color Pale yellow Urine Appearance Clear Urine pH 8 (4.5-8.0) Urine Specific [place] 1.010 (1.005-1.035) Urine Protein Negative (NEGATIVE) Urine Glucose (UA) Negative (NEGATIVE) Urine Ketones Negative (NEGATIVE) Urine Occult Blood 2+ (NEGATIVE) H Urine Nitrite Negative (NEGATIVE) Urine Bilirubin Negative (NEGATIVE) Urine Urobilinogen Normal MG/DL (0.0-1.0) Urine Leukocyte Esterase Negative (NEGATIVE) Urine RBC 2-4 /HPF (0 - 2) H Urine WBC 0-2 /HPF (0 - 2) Urine Squamous Epithelial Cells Occasional /LPF Urine Bacteria Occasional /HPF (NONE) White Blood Count 13.8 K/UL (4.8-10.8) H Red Blood Count 3.28 M/UL (4.20-5.40) L Hemoglobin 8.8 G/DL (12.0-16.0) L Hematocrit 26.5 % (37.0-47.0) L Mean Corpuscular Volume 81 FL (80-99) Mean Corpuscular Hemoglobin 27.0 PG (27.0-31.0) Mean Corpuscular Hemoglobin Concent 33.4 G/DL (32.0-36.0) Red Cell Distribution Width 15.8 % (11.6-14.8) H Platelet Count 350 K/UL (150-450) Mean Platelet Volume 5.6 FL (6.5-10.1) L Neutrophils (%) (Auto) 73.3 % (45.0-75.0) Lymphocytes (%) (Auto) 13.1 % (20.0-45.0) L Monocytes (%) (Auto) 12.4 % (1.0-10.0) H Eosinophils (%) (Auto) 0.5 % (0.0-3.0) Basophils (%) (Auto) 0.8 % (0.0-2.0) Sodium Level 131 MMOL/L (136-145) L Potassium Level 3.9 MMOL/L (3.5-5.1) Chloride Level 98 MMOL/L (98-107) Carbon Dioxide Level 29 MMOL/L (21-32) Anion Gap 4 (5-15) L Blood Urea Nitrogen 2 mg/dL (7-18) L Creatinine 0.6 MG/DL (0.55-1.30) Estimat Glomerular Filtration Rate > 60 mL/min (>60) Glucose Level 111 MG/DL (74-106) H Calcium Level 8.5 MG/DL (8.5-10.1) Additional Comments wbc trending down. Assessment Post-op Diagnosis post op pain, nausea, uncontrolled Plan Additional Comments anticipating possible discharge by end of week. Tray Mariscal MD Apr 05, 2017 14:15
--- NOTE | 2017-04-05 15:00 | General Progress Note ---
Assessment/Plan Assessment/Plan (1) Abdominal pain (2) Pelvic pain (3) Fibroid Uterus (4) S/p Ovarian artery embolization Pt to be continued on Dilaudid Percocet and Neurontin. Rx for Percocet and Neurontin written for patient in anticipation for discharge. D/w Dr. vail and he concurred. Subjective Date patient seen: Apr 05, 2017 Time patient seen: 01:45 - pm Allergies: Coded Allergies: SULFA (SULFONAMIDE ANTIBIOTICS) (Verified Allergy, Unknown, 04/01/17) Subjective REVIEW OF SYSTEMS: Denies rash, fever, chills, sweating, dizziness, drowsiness, sore throat, or change in her weight. No shortness of breath, chest pain, or palpitations. No nausea, vomiting, diarrhea, or blood in the stool or urine. No bowel or bladder incontinence. No dysuria. Complains of abdominal pain. SUBJECTIVE: Pain has been reduced and is a 4/10. She reports that the Neurontin has helped to reduce her pain. Objective Last 24 Hour Vital Signs Date Time Temp Pulse Resp B/P (MAP) Pulse Ox O2 Delivery O2 Flow Rate FiO2 04/05/17 12:00 98.6 105 20 97/67 98 Room Air 04/05/17 11:01 97.9 04/05/17 10:28 97.9 04/05/17 08:00 98.4 115 20 103/65 97 Room Air 04/05/17 04:38 97.9 102 19 95/57 95 Room Air 04/05/17 00:58 98.4 98 19 107/69 97 Room Air 04/04/17 20:00 98.4 100 18 111/77 98 Room Air 04/04/17 16:00 99.7 99 19 98/60 96 Room Air Intake and Output 04/05/17 04/06/17 19:00 07:00 Intake Total 885 ml Output Total 1000 ml Balance -115 ml Intake Oral 260 ml IV Total 625 ml Output Urine Total 1000 ml Laboratory Tests 04/05/17 04:40: White Blood Count 13.8H, Red Blood Count 3.28L, Hemoglobin 8.8L, Hematocrit 26.5L, Mean Corpuscular Volume 81, Mean Corpuscular Hemoglobin 27.0, Mean Corpuscular Hemoglobin Concent 33.4, Red Cell Distribution Width 15.8H, Platelet Count 350, Mean Platelet Volume 5.6L, Neutrophils (%) (Auto) 73.3, Lymphocytes (%) (Auto) 13.1L, Monocytes (%) (Auto) 12.4H, Eosinophils (%) (Auto ) 0.5, Basophils (%) (Auto) 0.8, Sodium Level 131L, Potassium Level 3.9, Chloride Level 98, Carbon Dioxide Level 29, Anion Gap 4L, Blood Urea Nitrogen 2L , Creatinine 0.6, Estimat Glomerular Filtration Rate > 60, Glucose Level 111H, Calcium Level 8.5 Height (Feet): 5 Height (Inches): 1.00 Weight (Pounds): 159 Objective GENERAL: Alert, awake, oriented x3. HEENT: PERRLA. NECK: Range of motion is full in all directions. No tenderness to paracervical muscles. No adenopathy. LUNGS: Clear. ABDOMEN: Tenderness to palpation. BACK: Range of motion is decreased in flexion and extension with tenderness to paraspinal muscles. No tenderness to trapezius or rhomboid muscles. EXTREMITIES: No cyanosis. No clubbing. No edema. JOHN COLE Apr 05, 2017 15:00
[2017-04-05 16:00] VITALS: BP 96/64
--- NOTE | 2017-04-05 16:14 | GI Progress Note ---
Assessment/Plan Problems: (1) Diarrhea ICD Codes: R19.7 - Diarrhea, unspecified SNOMED: 56269579 (2) Constipation ICD Codes: K59.00 - Constipation, unspecified SNOMED: 95527529 (3) Pelvic pain ICD Codes: R10.2 - Pelvic and perineal pain SNOMED: 01541400 (4) Uterine fibroid ICD Codes: D25.9 - Leiomyoma of uterus, unspecified SNOMED: 12517705 (5) Vomiting ICD Codes: R11.10 - Vomiting, unspecified SNOMED: 651419466 Status: stable, unchanged Status Narrative Discussed with Dr. Seals. Assessment/Plan OB stool >> negative symptomatic treatment titrate bowel regime, now c/o of constipation (noted patient had 3 BM's yesterday.) - within normal limits for patient to have 3 BMs per day or even up to one BM every 2-4days. 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 Subjective abdominal pain constipation Objective Last 24 Hour Vital Signs Date Time Temp Pulse Resp B/P (MAP) Pulse Ox O2 Delivery O2 Flow Rate FiO2 04/05/17 14:11 98.6 04/05/17 12:00 98.6 105 20 97/67 98 Room Air 04/05/17 10:28 97.9 04/05/17 08:00 98.4 115 20 103/65 97 Room Air 04/05/17 04:38 97.9 102 19 95/57 95 Room Air 04/05/17 00:58 98.4 98 19 107/69 97 Room Air 04/04/17 20:00 98.4 100 18 111/77 98 Room Air Intake and Output 04/05/17 04/06/17 19:00 07:00 Intake Total 1135 ml Output Total 1000 ml Balance 135 ml Intake Oral 260 ml IV Total 875 ml Output Urine Total 1000 ml Laboratory Tests Test 04/05/17 04:40 White Blood Count 13.8 K/UL (4.8-10.8) H Red Blood Count 3.28 M/UL (4.20-5.40) L Hemoglobin 8.8 G/DL (12.0-16.0) L Hematocrit 26.5 % (37.0-47.0) L Mean Corpuscular Volume 81 FL (80-99) Mean Corpuscular Hemoglobin 27.0 PG (27.0-31.0) Mean Corpuscular Hemoglobin Concent 33.4 G/DL (32.0-36.0) Red Cell Distribution Width 15.8 % (11.6-14.8) H Platelet Count 350 K/UL (150-450) Mean Platelet Volume 5.6 FL (6.5-10.1) L Neutrophils (%) (Auto) 73.3 % (45.0-75.0) Lymphocytes (%) (Auto) 13.1 % (20.0-45.0) L Monocytes (%) (Auto) 12.4 % (1.0-10.0) H Eosinophils (%) (Auto) 0.5 % (0.0-3.0) Basophils (%) (Auto) 0.8 % (0.0-2.0) Sodium Level 131 MMOL/L (136-145) L Potassium Level 3.9 MMOL/L (3.5-5.1) Chloride Level 98 MMOL/L (98-107) Carbon Dioxide Level 29 MMOL/L (21-32) Anion Gap 4 (5-15) L Blood Urea Nitrogen 2 mg/dL (7-18) L Creatinine 0.6 MG/DL (0.55-1.30) Estimat Glomerular Filtration Rate > 60 mL/min (>60) Glucose Level 111 MG/DL (74-106) H Calcium Level 8.5 MG/DL (8.5-10.1) Height (Feet): 5 Height (Inches): 1.00 Weight (Pounds): 159 General Appearance: no apparent distress, alert Cardiovascular: normal rate Respiratory/Chest: normal breath sounds, no respiratory distress Abdominal Exam: normal bowel sounds, non tender, soft Genitourinary/Rectal: normal rectal exam Extremities: normal range of motion, non-tender Kayla Garcia N.P. Apr 05, 2017 16:14
[2017-04-05] MEDS: Docusate 100mg cap ORAL SCH (17:52)
[2017-04-05 20:00] VITALS: BP 108/72
[2017-04-05] MEDS: Iron Sucrose 100 MG in NS 55 ML IV SCH (20:32)
[2017-04-05] MEDS: Miralax 17gm pkt ORAL SCH (20:32)
[2017-04-06 00:52] VITALS: BP 107/65
[2017-04-06 04:00] VITALS: BP 103/66
[2017-04-06] MEDS: D5 1/2NS w/KCl 30mEq 1000ml 1,000 ML IV SCH ×3 (05:39→22:00)
[2017-04-06 06:28] LABS: EOSINOPHILS % (AUTO) 1.2 % (0.0-3.0); LYMPHOCYTES % (AUTO) 17.6 % (20.0-45.0); MEAN CORPUSCULAR HEMOGLOBIN 25.9 PG (27.0-31.0); MEAN CORPUSCULAR HGB CONC 31.6 G/DL (32.0-36.0); MEAN CORPUSCULAR VOLUME 82 FL (80-99); MEAN PLATELET VOLUME 5.6 FL (6.5-10.1); MONOCYTES % (AUTO) 13.8 % (1.0-10.0); NEUTROPHILS % (AUTO) 66.5 % (45.0-75.0); PLATELET COUNT 422 K/UL (150-450); RED BLOOD COUNT 3.67 M/UL (4.20-5.40); RED CELL DISTRIBUTION WIDTH 16.2 % (11.6-14.8); WHITE BLOOD COUNT 10.4 K/UL (4.8-10.8)
[2017-04-06 07:08] LABS: ANION GAP 4 (5-15); CARBON DIOXIDE 32 MMOL/L (21-32); CHLORIDE 101 MMOL/L (98-107); CREATININE 0.6 MG/DL (0.55-1.30); GLOMERULAR FILTRATION RATE > 60 mL/min (>60); POTASSIUM 4.2 MMOL/L (3.5-5.1); SODIUM 137 MMOL/L (136-145)
[2017-04-06 08:00] VITALS: BP 130/78
[2017-04-06] MEDS: Docusate 100mg cap ORAL SCH ×2 (08:41→17:16)
--- NOTE | 2017-04-06 09:41 | Diagnostic Imaging Report ---
APPROVED REPORT CPT Code: 84880 Symptoms Rest Pain : Right Comments: S/P Uterine artery embolization. RIGHT LEG: Common femoral artery waveform analysis is within normal limits at rest. Color duplex sonography reveals patency of the superficial femoral, popliteal and tibial arteries. There is no evidence of stenosis or occlusion within these segments.
--- NOTE | 2017-04-06 09:42 | Diagnostic Imaging Report ---
APPROVED REPORT CPT Code: 08319 Present Symptoms Comments: Post Op Pain Limited compression used in common femoral veins, bilaterally due to pain. BILATERAL: Imaging reveals a patent deep venous system bilaterally. There is no evidence of thrombus within the femoral, popliteal or tibial segments. The greater saphenous veins are also within normal limits. Doppler indicates normal spontaneous flow within these segments.
[2017-04-06 12:00] VITALS: BP 98/68
--- NOTE | 2017-04-06 12:27 | GI Progress Note ---
Assessment/Plan Problems: (1) Diarrhea ICD Codes: R19.7 - Diarrhea, unspecified SNOMED: 86649573 (2) Constipation ICD Codes: K59.00 - Constipation, unspecified SNOMED: 47115785 (3) Pelvic pain ICD Codes: R10.2 - Pelvic and perineal pain SNOMED: 76685604 (4) Uterine fibroid ICD Codes: D25.9 - Leiomyoma of uterus, unspecified SNOMED: 32230809 (5) Vomiting ICD Codes: R11.10 - Vomiting, unspecified SNOMED: 293152897 Status: stable Status Narrative Discussed with Dr. Seals. Assessment/Plan OB stool >> negative symptomatic treatment titrate bowel regime, now c/o of constipation (noted patient had 3 BM's yesterday.) - within normal limits for patient to have 3 BMs per day or even up to one BM every 2-4days, education given to patient. 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 Subjective abdominal pain constipation Objective Last 24 Hour Vital Signs Date Time Temp Pulse Resp B/P (MAP) Pulse Ox O2 Delivery O2 Flow Rate FiO2 04/06/17 08:00 99.0 111 19 130/78 96 Room Air 04/06/17 04:00 97.7 95 19 103/66 95 Room Air 04/06/17 00:52 98.7 105 20 107/65 98 Room Air 04/05/17 20:00 98.1 108 19 108/72 93 Room Air 04/05/17 18:22 99.9 04/05/17 16:00 99.9 90 20 96/64 97 Room Air 04/05/17 14:11 98.6 Intake and Output 04/06/17 04/07/17 19:00 07:00 # Bowel Movements 1 Laboratory Tests Test 04/06/17 05:30 04/06/17 05:40 Sodium Level 137 MMOL/L (136-145) Potassium Level 4.2 MMOL/L (3.5-5.1) Chloride Level 101 MMOL/L (98-107) Carbon Dioxide Level 32 MMOL/L (21-32) Anion Gap 4 (5-15) L Blood Urea Nitrogen 1 mg/dL (7-18) L Creatinine 0.6 MG/DL (0.55-1.30) Estimat Glomerular Filtration Rate > 60 mL/min (>60) Glucose Level 108 MG/DL (74-106) H Calcium Level 9.0 MG/DL (8.5-10.1) White Blood Count 10.4 K/UL (4.8-10.8) Red Blood Count 3.67 M/UL (4.20-5.40) L Hemoglobin 9.5 G/DL (12.0-16.0) L Hematocrit 30.0 % (37.0-47.0) L Mean Corpuscular Volume 82 FL (80-99) Mean Corpuscular Hemoglobin 25.9 PG (27.0-31.0) L Mean Corpuscular Hemoglobin Concent 31.6 G/DL (32.0-36.0) L Red Cell Distribution Width 16.2 % (11.6-14.8) H Platelet Count 422 K/UL (150-450) Mean Platelet Volume 5.6 FL (6.5-10.1) L Neutrophils (%) (Auto) 66.5 % (45.0-75.0) Lymphocytes (%) (Auto) 17.6 % (20.0-45.0) L Monocytes (%) (Auto) 13.8 % (1.0-10.0) H Eosinophils (%) (Auto) 1.2 % (0.0-3.0) Basophils (%) (Auto) 1.0 % (0.0-2.0) Height (Feet): 5 Height (Inches): 1.00 Weight (Pounds): 159 General Appearance: no apparent distress, alert Cardiovascular: normal rate Respiratory/Chest: normal breath sounds, no respiratory distress Abdominal Exam: normal bowel sounds, non tender, soft Extremities: normal range of motion Kayla Garcia N.P. Apr 06, 2017 12:27
--- NOTE | 2017-04-06 15:23 | General Progress Note ---
Assessment/Plan Assessment/Plan 1. Postprocedural abdominal pain. 2. Status post uterine artery embolization for fibroids. 3. Chronic narcotic use. 4. Chronic neck and back pain. getting IV narcotics; declines oral Advised IV will be only if she fails oral rx need to change to oral only for dc disc w RN, Dr Mariscal Subjective Gastrointestinal/Abdominal: Reports: abdominal pain Allergies: Coded Allergies: SULFA (SULFONAMIDE ANTIBIOTICS) (Verified Allergy, Unknown, 04/01/17) Objective Last 24 Hour Vital Signs Date Time Temp Pulse Resp B/P (MAP) Pulse Ox O2 Delivery O2 Flow Rate FiO2 04/06/17 12:00 99.0 110 19 98/68 97 Room Air 04/06/17 08:00 99.0 111 19 130/78 96 Room Air 04/06/17 04:00 97.7 95 19 103/66 95 Room Air 04/06/17 00:52 98.7 105 20 107/65 98 Room Air 04/05/17 20:00 98.1 108 19 108/72 93 Room Air 04/05/17 18:22 99.9 04/05/17 16:00 99.9 90 20 96/64 97 Room Air Intake and Output 04/06/17 04/07/17 19:00 07:00 # Bowel Movements 1 Laboratory Tests 04/06/17 05:30: Sodium Level 137, Potassium Level 4.2, Chloride Level 101, Carbon Dioxide Level 32, Anion Gap 4L, Blood Urea Nitrogen 1L, Creatinine 0.6, Estimat Glomerular Filtration Rate > 60, Glucose Level 108H, Calcium Level 9.0 04/06/17 05:40: White Blood Count 10.4, Red Blood Count 3.67L, Hemoglobin 9.5L, Hematocrit 30.0L , Mean Corpuscular Volume 82, Mean Corpuscular Hemoglobin 25.9L, Mean Corpuscular Hemoglobin Concent 31.6L, Red Cell Distribution Width 16.2H, Platelet Count 422, Mean Platelet Volume 5.6L, Neutrophils (%) (Auto) 66.5, Lymphocytes (%) (Auto) 17.6L, Monocytes (%) (Auto) 13.8H, Eosinophils (%) (Auto ) 1.2, Basophils (%) (Auto) 1.0 Height (Feet): 5 Height (Inches): 1.00 Weight (Pounds): 159 General Appearance: moderate distress - crying Cardiovascular: normal rate Respiratory/Chest: lungs clear Abdomen: tender MILLER CAZARES Apr 06, 2017 15:23
--- NOTE | 2017-04-06 15:59 | General Surgery Progress Note ---
General Surgery-Progress Note Subjective Procedure Performed ovarian artery embolization Symptoms: pain same, passing flatus, BM Objective Last 24 Hour Vital Signs Date Time Temp Pulse Resp B/P (MAP) Pulse Ox O2 Delivery O2 Flow Rate FiO2 04/06/17 12:00 99.0 110 19 98/68 97 Room Air 04/06/17 08:00 99.0 111 19 130/78 96 Room Air 04/06/17 04:00 97.7 95 19 103/66 95 Room Air 04/06/17 00:52 98.7 105 20 107/65 98 Room Air 04/05/17 20:00 98.1 108 19 108/72 93 Room Air 04/05/17 18:22 99.9 04/05/17 16:00 99.9 90 20 96/64 97 Room Air I&O Intake and Output 04/06/17 04/07/17 19:00 07:00 # Bowel Movements 1 Dressing: dry Wound: clean Drains: none Cardiovascular: RSR Respiratory: clear Abdomen: tenderness, present bowel sounds Extremities: no edema, no tenderness, no cyanosis Laboratory Tests Test 04/06/17 05:30 04/06/17 05:40 Sodium Level 137 MMOL/L (136-145) Potassium Level 4.2 MMOL/L (3.5-5.1) Chloride Level 101 MMOL/L (98-107) Carbon Dioxide Level 32 MMOL/L (21-32) Anion Gap 4 (5-15) L Blood Urea Nitrogen 1 mg/dL (7-18) L Creatinine 0.6 MG/DL (0.55-1.30) Estimat Glomerular Filtration Rate > 60 mL/min (>60) Glucose Level 108 MG/DL (74-106) H Calcium Level 9.0 MG/DL (8.5-10.1) White Blood Count 10.4 K/UL (4.8-10.8) Red Blood Count 3.67 M/UL (4.20-5.40) L Hemoglobin 9.5 G/DL (12.0-16.0) L Hematocrit 30.0 % (37.0-47.0) L Mean Corpuscular Volume 82 FL (80-99) Mean Corpuscular Hemoglobin 25.9 PG (27.0-31.0) L Mean Corpuscular Hemoglobin Concent 31.6 G/DL (32.0-36.0) L Red Cell Distribution Width 16.2 % (11.6-14.8) H Platelet Count 422 K/UL (150-450) Mean Platelet Volume 5.6 FL (6.5-10.1) L Neutrophils (%) (Auto) 66.5 % (45.0-75.0) Lymphocytes (%) (Auto) 17.6 % (20.0-45.0) L Monocytes (%) (Auto) 13.8 % (1.0-10.0) H Eosinophils (%) (Auto) 1.2 % (0.0-3.0) Basophils (%) (Auto) 1.0 % (0.0-2.0) Imaging pelvic ultrasound today, no acute findings Assessment Post-op Diagnosis post op pain, nausea, uncontrolled Plan Additional Comments wean off iv pain meds. Tray Mariscal MD Apr 06, 2017 15:59
[2017-04-06 16:00] VITALS: BP 97/62
--- NOTE | 2017-04-06 16:00 | Diagnostic Imaging Report ---
Indication: Pelvic pain, status post uterine fibroid embolization Technique: Transabdominal and transvaginal images Comparison: Reference made to CT scan dated 04/01/2017 Findings: Uterus measures 12.3 cm length by 8.6 cm AP. Multiple masses are seen within the uterus, presumably fibroids. These are large, measuring up to 6.2 cm long axis dimension. A small amount of fluid is seen within the endometrium. The endometrium is not thickened. There is a cervical nabothian cyst demonstrated. The right ovary measures 4.9 cm in length the left ovary measures 4.1 cm in length. Note that the ovaries could only be demonstrated on transabdominal images. No free cul-de-sac fluid Impression: Enlarged fibroid uterus, also previously described. No unusual features, status post uterine fibroid embolization Fluid within the endometrium. This is a nonspecific finding, could represent blood or fluid related to the recent uterine artery embolization. Negative for adnexal mass
[2017-04-06 20:29] VITALS: BP 104/65
[2017-04-06] MEDS: Iron Sucrose 100 MG in NS 55 ML IV SCH (20:40)
[2017-04-06] MEDS: Miralax 17gm pkt ORAL SCH (20:47)
--- NOTE | 2017-04-06 23:09 | Cardiology Report ---
APPROVED REPORT EKG Measurement Heart [id number] Normal sinus rhythm Nonspecific T wave abnormality Abnormal ECG
[2017-04-07] VITALS: BP 93/56
[2017-04-07] MEDS: oxyCODONE HCL/Acetaminophen 5/325mg ORAL PRN ×2 (03:49→08:10)
[2017-04-07 04:00] VITALS: BP 120/70
[2017-04-07] MEDS: D5 1/2NS w/KCl 30mEq 1000ml 1,000 ML IV SCH (06:00)
[2017-04-07 08:00] VITALS: BP 99/64
[2017-04-07] MEDS: Docusate 100mg cap ORAL SCH (08:10)
[2017-04-07 10:44] LABS: BASOPHILS % (AUTO) 1.7 % (0.0-2.0); EOSINOPHILS % (AUTO) 1.7 % (0.0-3.0); LYMPHOCYTES % (AUTO) 19.1 % (20.0-45.0); MEAN CORPUSCULAR HEMOGLOBIN 25.4 PG (27.0-31.0); MEAN CORPUSCULAR HGB CONC 30.7 G/DL (32.0-36.0); MEAN CORPUSCULAR VOLUME 83 FL (80-99); MEAN PLATELET VOLUME 5.2 FL (6.5-10.1); NEUTROPHILS % (AUTO) 63.6 % (45.0-75.0); PLATELET COUNT 394 K/UL (150-450); RED BLOOD COUNT 3.53 M/UL (4.20-5.40); RED CELL DISTRIBUTION WIDTH 16.7 % (11.6-14.8); WHITE BLOOD COUNT 7.9 K/UL (4.8-10.8)
[2017-04-07 11:03] LABS: ANION GAP 6 (5-15); CALCIUM 9.1 MG/DL (8.5-10.1); CARBON DIOXIDE 31 MMOL/L (21-32); CHLORIDE 103 MMOL/L (98-107); CREATININE 0.6 MG/DL (0.55-1.30); GLOMERULAR FILTRATION RATE > 60 mL/min (>60); POTASSIUM 4.3 MMOL/L (3.5-5.1); SODIUM 140 MMOL/L (136-145)
--- NOTE | 2017-04-07 11:47 | Pulmonology Progress Note ---
Assessment/Plan Assessment/Plan Assessment/Plan 1. Postprocedural abdominal pain. 2. Status post uterine artery embolization for fibroids. 3. Chronic narcotic use. 4. Chronic neck and back pain. getting IV narcotics; declines oral Advised IV will be only if she fails oral rx need to change to oral only for dc disc w RN, Dr Mariscal Subjective Interval Events: no change Constitutional: Reports: no symptoms HEENT: Repors: no symptoms Respiratory: Reports: no symptoms Allergies: Coded Allergies: SULFA (SULFONAMIDE ANTIBIOTICS) (Verified Allergy, Unknown, 04/01/17) Objective Last 24 Hour Vital Signs Date Time Temp Pulse Resp B/P (MAP) Pulse Ox O2 Delivery O2 Flow Rate FiO2 04/07/17 08:00 98.6 91 19 99/64 100 Room Air 04/07/17 04:00 98.6 95 18 120/70 98 Room Air 04/07/17 00:00 98.7 96 19 93/56 100 Room Air 04/06/17 20:29 99.0 104 18 104/65 94 Room Air 04/06/17 16:00 98.3 110 19 97/62 Room Air 04/06/17 12:00 99.0 110 19 98/68 97 Room Air Intake and Output 04/07/17 04/08/17 19:00 07:00 # Bowel Movements 2 HEENT: normocephalic Respiratory/Chest: chest wall non-tender Cardiovascular: normal peripheral pulses, normal rate Abdomen: normal bowel sounds Microbiology Date/Time Source Procedure Growth Status 04/04/17 14:27 Urine,Clean Catch Urine Culture - Final Mixed Gram Positive Organism Complete Laboratory Tests 04/07/17 10:10: White Blood Count 7.9, Red Blood Count 3.53L, Hemoglobin 9.0L, Hematocrit 29.2L , Mean Corpuscular Volume 83, Mean Corpuscular Hemoglobin 25.4L, Mean Corpuscular Hemoglobin Concent 30.7L, Red Cell Distribution Width 16.7H, Platelet Count 394, Mean Platelet Volume 5.2L, Neutrophils (%) (Auto) 63.6, Lymphocytes (%) (Auto) 19.1L, Monocytes (%) (Auto) 14.0H, Eosinophils (%) (Auto ) 1.7, Basophils (%) (Auto) 1.7, Sodium Level 140, Potassium Level 4.3, Chloride Level 103, Carbon Dioxide Level 31, Anion Gap 6, Blood Urea Nitrogen 1L , Creatinine 0.6, Estimat Glomerular Filtration Rate > 60, Glucose Level 108H, Calcium Level 9.1 Current Medications Medications (Trade) Dose Ordered Sig/Tomas Route PRN Reason Start Time Stop Time Status Last Admin Dose Admin Cyclobenzaprine HCl (Flexeril) 10 mg TIDPRN PRN ORAL Muscle Spasm 04/04/17 15:00 05/04/17 14:59 04/04/17 16:44 Dextrose/ Electrolytes 1,000 ml @ 125 mls/hr Q8H IV 04/03/17 14:00 05/03/17 13:59 04/07/17 06:00 Diphenhydramine HCl (Benadryl) 12.5 mg Q6H PRN IVP Itching/Pruritis 04/01/17 10:45 05/01/17 10:44 Diphenhydramine HCl (Benadryl) 25 mg Q8H PRN ORAL Itching/Pruritis 04/01/17 10:45 05/01/17 10:44 Docusate Sodium (Colace) 100 mg TWICE A DAY ORAL 04/05/17 18:00 05/05/17 17:59 04/06/17 17:16 Gabapentin (Neurontin) 300 mg THREE TIMES A DAY ORAL 04/04/17 16:00 05/04/17 15:59 04/07/17 08:09 Hydrocortisone (Anusol HC) 1 supp BIDPRN PRN RECTAL RECTAL PAIN 04/04/17 15:45 05/04/17 15:44 Hydromorphone HCl (Dilaudid) 2 mg Q3H PRN IVP BREAKTHRU SEVERE PAIN (7-10) 04/06/17 17:00 04/13/17 16:59 04/06/17 20:39 Ondansetron HCl (Zofran) 4 mg Q6H PRN IVP Nausea & Vomiting 04/01/17 10:45 05/01/17 10:44 04/02/17 18:49 Oxycodone/ Acetaminophen (Percocet 10/325) 1 tab Q4H PRN ORAL for severe pain 04/06/17 19:45 04/13/17 19:44 Oxycodone/ Acetaminophen (Percocet 5-325) 1 tab Q4H PRN ORAL Moderate Pain (Pain Scale 4-6) 04/06/17 19:30 04/13/17 19:29 04/07/17 08:10 Polyethylene Glycol (Miralax) 17 gm BEDTIME ORAL 04/05/17 21:00 05/05/17 20:59 Zolpidem Tartrate (Ambien) 5 mg DAILYPRN PRN ORAL Insomnia 04/01/17 10:45 04/08/17 10:44 04/02/17 21:12 Cyrus Ramirez MD Apr 07, 2017 11:47
[2017-04-07 12:00] VITALS: BP 98/65
[2017-04-07] MEDS ORDERED: PERCOCET 5-3251 EACH ORAL (12:50)
--- NOTE | 2017-04-07 13:31 | GI Progress Note ---
Assessment/Plan Problems: (1) Diarrhea ICD Codes: R19.7 - Diarrhea, unspecified SNOMED: 01731714 (2) Constipation ICD Codes: K59.00 - Constipation, unspecified SNOMED: 58471475 (3) Pelvic pain ICD Codes: R10.2 - Pelvic and perineal pain SNOMED: 52121888 (4) Uterine fibroid ICD Codes: D25.9 - Leiomyoma of uterus, unspecified SNOMED: 28114075 (5) Vomiting ICD Codes: R11.10 - Vomiting, unspecified SNOMED: 752848637 Status: stable Status Narrative Discussed with Dr. Seals. Assessment/Plan OB stool >> negative symptomatic treatment titrate bowel regime - within normal limits for patient to have 3 BMs per day or even up to one BM every 2-4days, education given to patient. cont colace, miralax qhs monitor H&H, prn transfusions zofran prn pain mgmt fu labs fu pelvic US fu ACCOUNTS RECEIVABLE REPRESENTATIVE Subjective Subjective abdominal pain constipation Objective Last 24 Hour Vital Signs Date Time Temp Pulse Resp B/P (MAP) Pulse Ox O2 Delivery O2 Flow Rate FiO2 04/07/17 12:00 98.0 81 19 98/65 98 Room Air 04/07/17 08:00 98.6 91 19 99/64 100 Room Air 04/07/17 04:00 98.6 95 18 120/70 98 Room Air 04/07/17 00:00 98.7 96 19 93/56 100 Room Air 04/06/17 20:29 99.0 104 18 104/65 94 Room Air 04/06/17 16:00 98.3 110 19 97/62 Room Air Intake and Output 04/07/17 04/08/17 19:00 07:00 # Bowel Movements 2 Laboratory Tests Test 04/07/17 10:10 White Blood Count 7.9 K/UL (4.8-10.8) Red Blood Count 3.53 M/UL (4.20-5.40) L Hemoglobin 9.0 G/DL (12.0-16.0) L Hematocrit 29.2 % (37.0-47.0) L Mean Corpuscular Volume 83 FL (80-99) Mean Corpuscular Hemoglobin 25.4 PG (27.0-31.0) L Mean Corpuscular Hemoglobin Concent 30.7 G/DL (32.0-36.0) L Red Cell Distribution Width 16.7 % (11.6-14.8) H Platelet Count 394 K/UL (150-450) Mean Platelet Volume 5.2 FL (6.5-10.1) L Neutrophils (%) (Auto) 63.6 % (45.0-75.0) Lymphocytes (%) (Auto) 19.1 % (20.0-45.0) L Monocytes (%) (Auto) 14.0 % (1.0-10.0) H Eosinophils (%) (Auto) 1.7 % (0.0-3.0) Basophils (%) (Auto) 1.7 % (0.0-2.0) Sodium Level 140 MMOL/L (136-145) Potassium Level 4.3 MMOL/L (3.5-5.1) Chloride Level 103 MMOL/L (98-107) Carbon Dioxide Level 31 MMOL/L (21-32) Anion Gap 6 (5-15) Blood Urea Nitrogen 1 mg/dL (7-18) L Creatinine 0.6 MG/DL (0.55-1.30) Estimat Glomerular Filtration Rate > 60 mL/min (>60) Glucose Level 108 MG/DL (74-106) H Calcium Level 9.1 MG/DL (8.5-10.1) Height (Feet): 5 Height (Inches): 1.00 Weight (Pounds): 159 General Appearance: no apparent distress, alert Cardiovascular: normal rate Respiratory/Chest: normal breath sounds, no respiratory distress Abdominal Exam: normal bowel sounds, non tender, soft Extremities: normal range of motion Kayla Garcia N.P. Apr 07, 2017 13:31
[2017-04-07] MEDS ORDERED: Tubing IV Secondary IV ONE (14:29)
--- NOTE | 2017-04-11 03:45 | Discharge Summary 2 SIG ---
DATE OF ADMISSION: 04/01/2017 DATE OF DISCHARGE: 04/07/2017 REASON FOR ADMISSION: 46-year-old female, who had recently undergone uterine artery embolization for uterine fibroids, presented with abdominal pain, nausea, and vomiting. The patient reported chills and reported more than 20 episodes of nonbilious and nonbloody vomiting and generalized abdominal pain. The patient was admitted for further management. HOSPITAL COURSE: The patient was admitted. Internal medicine and pain specialist consults were requested. Initially on admission, the patient had undergone CT of the abdomen and pelvis which revealed 3.5 x 1.5 cm area of ill-defined , probable hemorrhage surrounding the right external iliac vessel. No obvious acute active extravasation. Also noted were multiple fibroids arising from the uterus. Subsequently, the patient had also undergone abdominopelvic transvaginal ultrasound, which revealed enlarged fibroid uterus, status post uterine fibroid embolization, fluid within the endometrium, nonspecific finding likely representing fluid related to the recent uterine artery embolization, but no adnexal mass. The patient initially presented with mild leukocytosis - 11.2 which increased to 16.9 on 04/03/2017. The patient was little-cultured. Blood cultures were negative. Urine culture revealed mixed gram-positive organisms. No fever. Leukocytosis resolved on the day of discharge. . Pain management was provided. central melt specialist had seen and evaluated the patient, and addressed pain management. The patient had chronic neck and back pain, and pain was managed with chronic narcotic use, as per patient. Pain management was challenging and difficult to address. While in the hospital, the patient was on IV analgesics, which were changed to oral prior to discharge. The pain was finally controlled. Symptomatic treatment provided including antiemetic. GI consult requested. Bowel regimen was optimized. Diet slowly reintroduced, initially on IV fluids. The patient with evidence of anemia. Anemia workup revealed anemia of chronic disease. No need for transfusion. Stool OB was negative. According to GI specialist, the patient had around 3 bowel movements a day, which was her baseline and then 1 to 2 bowel movements every 2 to 4 days. Education provided to the patient by GI specialist regarding the bowel regimen. Patient on Relistor at home. The patient was stable for discharge back home. Follow up with [facility] as an outpatient. FINAL DIAGNOSES: 1. Postprocedural abdominal pain and vomiting. 2. Status post uterine artery embolization. 3. Fibroid uterus. 4. Chronic narcotic use. 5. Chronic neck and back pain. DISCHARGE MEDICATIONS: See medication reconciliation list. DISCHARGE INSTRUCTIONS: The patient was discharged home. FOLLOWUP: Follow up with [facility] as an outpatient and primary medical doctor. Tray Hoyt M.D. I have been assigned to dictate discharge summary on this account and I was not involved in the patient's management. Genie Hernandez (Vanchtein) N.PMatt DR: RONI JOB#: [id number] CC: [email or web address]
== END 2017-04-07 14:30 | disposition home or self-care (01) | DRG 948 ==
LOC: EMR 05:49 → 4E 06:49 → EDBEDREQ 07:30 → 3E 11:43
DX: G89.18 Other acute postprocedural pain (principal); R11.11 Vomiting without nausea; D72.829 Elevated white blood cell count, unspecified; D63.8 Anemia in other chronic diseases classified elsewhere; R10.84 Generalized abdominal pain; Z98.890 Other specified postprocedural states; G89.29 Other chronic pain; M54.2 Cervicalgia; M54.9 Dorsalgia, unspecified; D25.9 Leiomyoma of uterus, unspecified; F11.90 Opioid use, unspecified, uncomplicated; K59.00 Constipation, unspecified; R19.7 Diarrhea, unspecified; Z88.2 Allergy status to sulfonamides
CPT/HCPCS: 36415; 74177; 76856; 80048; 80053; 81001; 81003; 81025; 82270; 83540; 83550; 83605; 83690; 84484; 85025; 87040; 87086; 93005; 93926; 93970; 99285; J2405